=== PATIENT | female | born 1945 | race Caucasian/White ===

== ENCOUNTER 2018-03-28 09:31 | Day surgery (SDC) | payer MEDICARE, BC ==
[~2018-03-28 09:31] MED LIST: Buffered Lidocaine 0.9% SYRIN* 5 ML/SYR SYRINGE INTRADERM ONE
[2018-03-28] MEDS ORDERED: Bupivacaine 0.25% SDV* 30 ML ONE (10:25)
[2018-03-28] MEDS ORDERED: Midazolam* 1 MG/ML 2 ML VIAL (2 MG) ONE (11:54)
[2018-03-28] MEDS ORDERED: fentaNYL* 50 MCG/ML 2 ML VIAL (100 MCG VIAL) ONE (11:55)
[2018-03-28] MEDS ORDERED: Naloxone* 0.4 MG/ML 1 ML VIAL IV PRN (12:05)
[2018-03-28 12:38] VITALS: BP 142/71
--- NOTE | 2018-03-28 23:51 | OP ---
DATE OF OPERATION: 03/28/18 - [facility] DATE OF : 43 SURGEON: Glenn Wilson MD [employer] EXECUTIVE: ORLANDO Orozco ANESTHESIOLOGIST: Dr. Davis. ANESTHESIA: Local MAC. PRE-OP DIAGNOSES: 1. Severe electrodiagnostic right carpal tunnel syndrome. 2. Right trigger finger and chronic tendinitis at the A1 anitha. POST-OP DIAGNOSES: 1. Severe electrodiagnostic right carpal tunnel syndrome. 2. Right trigger finger and chronic tendinitis at the A1 anitha. OPERATIVE PROCEDURE: 1. Right open carpal tunnel release. 2. Right ring trigger finger release. INDICATIONS: Neida is 73 years old. She has, progressively over the years , had her carpal tunnel get worse. She has severe disease electrodiagnostically. She does have problems with sensation at the tips of the fingers and manipulating fine objects. Additionally, she has had catching in the right ring finger and she has developed progressive difficulty closing the hand and getting the ring finger down to the palm. We had talked about risks and benefits, she had wanted to proceed with surgery. ESTIMATED BLOOD LOSS: 2 mL. COMPLICATIONS: None. FINDINGS: See above and below. DESCRIPTION OF PROCEDURE: Neida was seen in the preoperative holding area. The correct side, site, and the procedure were identified. We came back to the operating room where she got some local anesthetic. The arm was prepped and draped in the usual fashion. A time-out was performed. The arm was exsanguinated with the Esmarch and the tourniquet inflated to 250 mmHg. I went ahead and made a 2- to 3-cm longitudinal incision over the proximal palm in the typical location for an open carpal tunnel release. Dissection was carried down through subcutaneous tissue and palmar fascia. Transverse carpal ligament was released just off the radial aspect of the hook of the hamate from distal to proximal. When I came proximal, I released the subcutaneous tissue and fascia and released the remainder of the transverse carpal ligament in the distal antebrachial fascia to a level several centimeters proximal to the wrist-flexion crease. Once I confirmed the decompression proximally and distally and everything was looking good, we irrigated out the wound. The skin was closed with 4-0 nylon suture. I then made a small V-shaped incision over the right ring finger A1 anitha, full - thickness flaps were raised off the A1 anitha. The A1 anitha was released just off along the radial release longitudinally along the radial third of the anitha. The release was completed distally and proximally with tenotomy scissors. There was some fraying of the FDS tendon right underneath the A1 anitha. At this point, everything was looking good, so we irrigated out the wound and the skin was closed with 4-0 nylon suture. The wounds were dressed with soft dressings. Tourniquet was deflated and she was taken to the recovery room in stable condition. [id number] #: [id number] SRINI
== END 2018-03-28 12:49 | disposition home or self-care (01) ==
LOC: OREAST 09:31
PROVIDERS: ATTEND Orthopaedic Surgery Hand Surgery
DX: G56.01 Carpal tunnel syndrome, right upper limb (principal); M65.341 Trigger finger, right ring finger; I10 Essential (primary) hypertension; M35.3 Polymyalgia rheumatica; Z85.42 Personal history of malignant neoplasm of other parts of uterus; J45.909 Unspecified asthma, uncomplicated
CPT/HCPCS: J2250; J3010

== ENCOUNTER 2018-05-02 06:40 | Day surgery (SDC) | payer MEDICARE, BC ==
[2018-05-02] MEDS ORDERED: fentaNYL* 50 MCG/ML 2 ML VIAL (100 MCG VIAL) ONE (07:43)
[2018-05-02] MEDS ORDERED: Midazolam* 1 MG/ML 2 ML VIAL (2 MG) ONE (07:44)
[2018-05-02] MEDS ORDERED: Bupivacaine 0.25% SDV PF* 10 ML VIAL INJ ONE (07:49)
[2018-05-02] MEDS ORDERED: Ondansetron INJ* 2 MG/ML VIAL IV PRN (08:43)
[2018-05-02] MEDS ORDERED: Ibuprofen TAB* 600 MG PO PRN (08:43)
[2018-05-02] MEDS ORDERED: Naloxone* 0.4 MG/ML 1 ML VIAL IV PRN (08:43)
[2018-05-02] MEDS ORDERED: Acetaminophen TAB* 325 MG PO PRN (08:43)
[2018-05-02 09:01] VITALS: BP 135/70
--- NOTE | 2018-05-02 23:30 | OP ---
DATE OF OPERATION: 04/01/18 [facility] DATE OF : 43 SURGEON: Glenn Wilson MD [employer] REPRESENTATIVE: ORLANDO Orozco ANESTHESIOLOGIST: Dr. Donnelly. ANESTHESIA: Local MAC. PRE-OP DIAGNOSIS: Left carpal tunnel syndrome. POST-OP DIAGNOSIS: Left carpal tunnel syndrome. OPERATIVE PROCEDURE: Left open carpal tunnel release. INDICATIONS: Neida is 73 years old with progressive carpal tunnel syndrome. We talked about risks and benefits. She wanted to proceed. ESTIMATED BLOOD LOSS: 2 mL. COMPLICATIONS: None. FINDINGS: See above and below. DESCRIPTION OF PROCEDURE: Neida was seen in the preoperative holding area. The correct side, site, and the procedure were identified. We came back to the operating room. The arm was prepped and draped in the usual fashion. A time- out was performed. The arm was exsanguinated with the Esmarch and the tourniquet inflated to 250 mmHg. I made a 2 to 3-cm longitudinal incision in the proximal palm in the typical location for an open carpal tunnel release. Dissection was carried down through the subcutaneous tissue and palmar fascia. The transverse carpal ligament was then released just off the radial aspect of the hook of the hamate. The release was completed distally and then proximally, I released the subcutaneous tissue and palmar fascia and under direct visualization, released the remainder of the transverse carpal ligament in distal antebrachial fascia with the tenotomy scissors. Once the release was confirmed distally and proximally, we irrigated out the wound. The skin was closed with 4-0 nylon suture. Soft dressings were applied and she was taken to the recovery room in stable condition. [id number]/[facility] #: [id number] [facility]
== END 2018-05-02 09:04 | disposition home or self-care (01) ==
LOC: OREAST 06:40
PROVIDERS: ATTEND Orthopaedic Surgery Hand Surgery
DX: G56.02 Carpal tunnel syndrome, left upper limb (principal); I10 Essential (primary) hypertension; E78.5 Hyperlipidemia, unspecified; K21.9 Gastro-esophageal reflux disease without esophagitis; M35.3 Polymyalgia rheumatica
CPT/HCPCS: J2250; J3010; J3490